=== PATIENT | male | born 1990 | race Caucasian/White ===

== ENCOUNTER 2016-03-20 14:37 | Emergency (ER) | payer MEDICAID ==
[~2016-03-20] VITALS: Ht 180.3 cm; Wt 200.0 kg
[~2016-03-20 14:37] MED LIST: ONDA1TAB16 PO; TERB1%T TOP
[2016-03-20 14:38] VITALS: BP 144/70; PULSE 106; RESP 20; TEMP 97.7; O2SAT 96
[2016-03-20] MEDS ORDERED: BACT800T5 PO (15:23)
--- NOTE | 2016-03-20 15:29 | PD ---
HPI Chief Complaint: Skin Problem Time Seen by Provider: 15:24 Travel History International Travel<30 days: No Contact w/Intl Traveler<30days: No Traveled to known affect area: No History of Present Illness HPI 25-year-old male with a history of multiple abscesses presents to the emergency room for evaluation of abscess to his left axilla that started a few days ago. It began to spontaneously drain last night while sleeping. Denies fever, chills , nausea, and vomiting. No streaking. PFSH Social History Tobacco Use: No Allergies-Medications (Allergen,Severity, Reaction): Coded Allergies: Penicillin (Verified Adverse Reaction, Intermediate, 03/20/16) Reported Meds & Prescriptions Reported Meds & Active Scripts Active Bactrim DS (Sulfamethoxazole-Trimethoprim) 800-160 Mg Tab 1 Tab PO BID Review of Systems Except as stated in HPI: all other systems reviewed are Neg Physical Exam Narrative GENERAL: Well-nourished, morbidly obese male in no acute distress. Ambulatory. Afebrile. SKIN: Warm and dry. There is an indurated area in the left axilla which measures about 3 cm in diameter. It is fluctuant but there is no pointing or drainage. There is a zone of inflammation around it but no lymphangitis. HEAD: Normocephalic. EYES: No scleral icterus. No injection or drainage. NECK: Supple, trachea midline. No JVD or lymphadenopathy. Data Data Last Documented VS Vital Signs Date Time Temp Pulse Resp B/P Pulse Ox O2 Delivery O2 Flow Rate FiO2 03/20/16 14:38 97.7 106 20 144/70 96 Room Air MDM Medical Decision Making Medical Screen Exam Complete: Yes Emergency Medical Condition: Yes Medical Record Reviewed: Yes Differential Diagnosis Abscess versus folliculitis versus hidradenitis suppurativa Narrative Course 25-year-old morbidly obese male with a history of abscesses presents to the emergency room for evaluation of left axillary abscess for the past few days. No systemic signs of infection. Patient is afebrile and well-appearing. There is a 3 cm area of induration in the left axilla that is spontaneously draining. No lymphangitis. Abscess was further drained, see procedure note for details. Patient discharged with Bactrim and told to follow up with primary care physician or return for worsening symptoms. He understands and agrees to plan. Procedures Procedure Narrative INCISION AND DRAINAGE OF ABSCESS: The area was prepped and was sterilely draped. A subcutaneous wheal of 1% lidocaine with epinephrine with a total number 4 mL was used to anesthetize the area properly. A number 11 scalpel was used to make a 1 cm incision across the area of the abscess. The abscess was drained, complex loculations were broken down, and irrigated with normal saline. Cultures were obtained. Sterile dressing applied. Diagnosis Primary Impression: Abscess of left axilla Referrals: Primary Care Physician Patient Instructions: Abscess (ED), General Instructions Departure Forms: Tests/Procedures, Work Release Enter return to work date: Mar 21, 2016 Additional Instructions: Rest and drink plenty of fluids. Take Bactrim as directed, until gone. Follow up with a primary care physician. Return to emergency room for worsening symptoms, as discussed. Med/Other Pt SpecificInfo: Prescription(s) given Scripts Sulfamethoxazole-Trimethoprim (Bactrim DS)800-160 Mg Tab1 Tab PO BID #20 TAB Ref 0 Prov:Ann Gamble MD 03/20/16 Disposition: 01 DISCHARGE HOME Condition: Stable Michelle Dang Mar 20, 2016 15:29
== END 2016-03-20 16:05 | disposition home or self-care (01) ==
LOC: NEPB 14:37
DX: L02.412 Cutaneous abscess of left axilla (principal)
CPT/HCPCS: 10060; 86403; 87070; 87205

== ENCOUNTER 2017-02-22 15:00 | Emergency (ER) | payer MEDICAID ==
[~2017-02-22] VITALS: Ht 180.3 cm; Wt 227.7 kg
[~2017-02-22 15:00] MED LIST changes: +BACT800T5 PO; -ONDA1TAB16 PO; -TERB1%T TOP
[2017-02-22 15:02] VITALS: BP 188/117; PULSE 100; RESP 20; TEMP 97.9; O2SAT 99
--- NOTE | 2017-02-22 16:53 | RADRPT ---
EXAM DATE/TIME: 02/22/2017 15:58 [facility] COMPARISON: No previous studies available for comparison. INDICATIONS : Right leg pain. MEDICAL HISTORY : Hypertension. Sleep apnea. [place]bin obesity. Knee pain. Back pain. Foot infe ction. SURGICAL HISTORY : None. ENCOUNTER: Initial ACUITY: 1 week PAIN SCORE: 8/10 LOCATION: Right leg. TECHNIQUE: Venous ultrasound of the leg was performed from the inguinal ligament to the proximal calf. Real-time, color Doppler and spectral tracing, compression and augmentation techniques were us ed. FINDINGS: There is normal compressibility of the deep venous system from the inguinal region to the proximal ca lf. No echogenic clot is seen in the lumen of the common femoral, femoral, popliteal, and posterior tibial veins. There is a normal response of the venous system to proximal and distal augmentation an d respiration. CONCLUSION: No evidence of DVT. Chente Larry MD on February 22, 2017 at 16:51 Board Certified Radiologist. This report was verified electronically.
[2017-02-22] MEDS ORDERED: PHEN37.54 PO (17:33)
[2017-02-22] MEDS ORDERED: DICL75TA PO (17:33)
[2017-02-22] MEDS ORDERED: LEVO25TA4 PO (17:33)
[2017-02-22] MEDS ORDERED: LISI-515 PO (17:33)
[2017-02-22 17:37] VITALS: BP 185/113; PULSE 96; RESP 19; O2SAT 100
[2017-02-22] MEDS ORDERED: IBUP-232 PO (17:52)
[2017-02-22] MEDS ORDERED: CYCL10TA PO (17:52)
[2017-02-22] MEDS ORDERED: MAPA500T13 PO (17:52)
--- NOTE | 2017-02-22 17:59 | PD ---
HPI Chief Complaint: Pain: Acute or Chronic Time Seen by Provider: 17:40 Travel History International Travel<30 days: No Contact w/Intl Traveler<30days: No Traveled to known affect area: No History of Present Illness HPI 26-year-old male presents to emergency Department with worsening right calf pain and tenderness over the past 2 months. Patient was seen by his PCP who recommended he come get checked for possible DVT. Grossly overweight and has been trying to exercise which is exacerbating his symptoms. Pain is currently about a 6 out of 10 and worse with ambulation. He denies shortness of breath or chest pain. He is allergic to penicillin. PFSH Past Medical History Cardiovascular Problems: Yes (HTN) Social History Tobacco Use: No Allergies-Medications (Allergen,Severity, Reaction): Coded Allergies: penicillin G (Unverified Adverse Reaction, Intermediate, 02/22/17) Reported Meds & Prescriptions Reported Meds & Active Scripts Active Mapap Extra Strength (Acetaminophen) 500 Mg Tab 1,000 Mg PO Q6HR PRN Ibuprofen 600 Mg Tab 600 Mg PO Q6H PRN Flexeril (Cyclobenzaprine HCl) 10 Mg Tab 10 Mg PO HS Bactrim DS (Sulfamethoxazole-Trimethoprim) 800-160 Mg Tab 1 Tab PO BID Reported Levothyroxine (Levothyroxine Sodium) 25 Mcg Tab 25 Mcg PO DAILY Diclofenac Sodium DR (Diclofenac Sodium) 75 Mg Tabdr 75 Mg PO BID Lisinopril 20 Mg Tab 20 Mg PO DAILY Phentermine (Phentermine HCl) 37.5 Mg Cap 37.5 Mg PO DAILY Review of Systems Except as stated in HPI: all other systems reviewed are Neg General / Constitutional: No: Fever Eyes: No: Visual changes HENT: No: Headaches Cardiovascular: No: Chest Pain or Discomfort Respiratory: No: Shortness of Breath Gastrointestinal: No: Abdominal Pain Genitourinary: No: Dysuria Musculoskeletal: Positive: Myalgias, Pain Skin: No Rash Neurologic: No: Weakness Psychiatric: No: Depression Endocrine: No: Polydipsia Hematologic/Lymphatic: No: Easy Bruising Physical Exam Narrative GENERAL: Obese male in no acute distress. SKIN: Warm and dry. Normal color. Normal turgor. No rash. No signs of cellulitis. HEAD: Atraumatic. Normocephalic. EYES: Pupils equal and round. No scleral icterus. No injection or drainage. ENT: No nasal bleeding or discharge. Mucous membranes pink and moist. NECK: Trachea midline. No JVD. CARDIOVASCULAR: Regular rate and rhythm. RESPIRATORY: No accessory muscle use. Clear to auscultation. Breath sounds equal bilaterally. GASTROINTESTINAL: Abdomen soft, non-tender, nondistended. Hepatic and splenic margins not palpable. MUSCULOSKELETAL: Extremities without clubbing, cyanosis, or edema. No obvious deformities. Both calves appear similar in appearance bilaterally. Patient has discomfort with palpation of the right calf with mildly positive Homans sign. No signs of infection are noted. NEUROLOGICAL: Awake and alert. No obvious cranial nerve deficits. Motor grossly within normal limits. Five out of 5 muscle strength in the arms and legs. Normal speech. PSYCHIATRIC: Appropriate mood and affect; insight and judgment normal. Data Data Last Documented VS Vital Signs Date Time Temp Pulse Resp B/P (MAP) Pulse Ox O2 Delivery O2 Flow Rate FiO2 02/22/17 17:37 96 19 185/113 (137) 100 Room Air 02/22/17 15:02 97.9 Orders Orders Us Leg Venous Doppler (02/22/17 ) [facility] Medical Decision Making Medical Screen Exam Complete: Yes Emergency Medical Condition: Yes Differential Diagnosis Calf pain. Calf strain. DVT. Narrative Course Ultrasound ordered in triage is negative for DVT. Patiently treated with Flexeril 10 mg daily at bedtime #30. Patient also given ibuprofen 600 mg 4 times a day #40. Patient also given Mapap 500 mg 2 tabs every 6 hours when necessary over 80. Patient is due stretching and follow-up with his primary care physician as needed. Diagnosis Primary Impression: Strain of calf muscle Qualified Codes: S86.811A - Strain of other muscle(s) and tendon(s) at lower leg level, right leg, initial encounter Referrals: Primary Care Physician Patient Instructions: General Instructions, Leg Cramps (ED), Muscle Cramp (ED) Additional Instructions: Ultrasound ordered in triage is negative for DVT. Patiently treated with Flexeril 10 mg daily at bedtime #30. Patient also given ibuprofen 600 mg 4 times a day #40. Patient also given Mapap 500 mg 2 tabs every 6 hours when necessary over 80. Patient is due stretching and follow-up with his primary care physician as needed. Med/Other Pt SpecificInfo: Prescription(s) given Scripts Acetaminophen (Mapap Extra Strength) 500 Mg Tab 1000 MG PO Q6HR Y for PAIN, #80 TAB 0 Refills Prov: Smith Mcgowan MD 02/22/17 Ibuprofen (Ibuprofen) 600 Mg Tab 600 MG PO Q6H Y for Pain/Inflammation, #40 TAB 0 Refills Prov: Smith Mcgowan MD 02/22/17 Cyclobenzaprine (Flexeril) 10 Mg Tab 10 MG PO HS for Muscle Spasm, #20 TAB 0 Refills Prov: Smith Mcgowan MD 02/22/17 Disposition: 01 DISCHARGE HOME Condition: Stable Dilshad Martinez Feb 22, 2017 17:59
[2017-03-02] MEDS ORDERED: AZIT500T2 PO (11:59)
== END 2017-02-22 18:15 | disposition home or self-care (01) ==
LOC: NEPD 15:00
DX: S86.811A Strain of other muscle(s) and tendon(s) at lower leg level, right leg, initial encounter (principal); X58.XXXA Exposure to other specified factors, initial encounter
CPT/HCPCS: 93971